=== PATIENT | male | born 2000 | race African-American/Black ===

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

== ENCOUNTER 2018-12-21 11:48 | Emergency (ER) | payer OTHER, MEDICAID ==
[~2018-12-21] VITALS: Ht 160 cm; Wt 60.2 kg
[2018-12-21 13:26] VITALS: BP 112/80
== END 2018-12-21 13:33 | disposition home or self-care (01) ==
LOC: M ED 11:48
DX: S00.03XA Contusion of scalp, initial encounter (principal); W01.198A Fall on same level from slipping, tripping and stumbling with subsequent striking against other object, initial encounter; Y92.89 Other specified places as the place of occurrence of the external cause; Y99.0 Civilian activity done for income or pay

== ENCOUNTER 2019-05-01 12:50 | Emergency (ER) | payer OTHER, MEDICAID ==
[~2019-05-01] VITALS: Ht 165.1 cm; Wt 60.0 kg
[2019-05-01 14:26] VITALS: BP 105/58
[2019-05-01] MEDS ORDERED: BACI500O21 TOP (14:32)
[2019-05-01] MEDS ORDERED: BACITRACIN OINT 30GM TOP PRN (14:45)
--- NOTE | 2019-05-01 15:32 | REP ---
HISTORY: Assess for foreign body along the right side of the face. COMPARISON: No priors for comparison. Limited plain film examination of the facial bones shows no evidence of a radiopaque foreign body. There is no evidence of a fracture, however, the gold standard for imaging facial bone fractures is CT. IMPRESSION: No evidence of a foreign body. Findings as described above. Electronically Signed by Petr Gracia DO 05/01/2019 04:33 P
== END 2019-05-01 14:59 | disposition home or self-care (01) ==
LOC: EDBD 12:50 → M ED 12:50
DX: S01.83XA Puncture wound without foreign body of other part of head, initial encounter (principal); V43.62XA Car passenger injured in collision with other type car in traffic accident, initial encounter; Y92.410 Unspecified street and highway as the place of occurrence of the external cause